=== PATIENT | female | born 1985 | race Caucasian/White ===

== ENCOUNTER 2023-03-22 23:28 | Emergency (ER) | payer SELFPAY ==
[2023-03-22 23:43] VITALS: BP 120/86; PULSE 115
== END 2023-03-23 00:56 | disposition left against medical advice (07) ==
LOC: JD.ED 23:28
DX: Z53.21 Procedure and treatment not carried out due to patient leaving prior to being seen by health care provider (principal)

== ENCOUNTER 2024-04-16 17:38 | Emergency (ER) | payer BC ==
[2024-04-16 19:47] VITALS: BP 117/94; PULSE 75
== END 2024-04-16 19:47 | disposition home or self-care (01) ==
LOC: JD.ED 17:38
DX: U07.1 COVID-19 (principal); T50.905A Adverse effect of unspecified drugs, medicaments and biological substances, initial encounter; Z86.16 Personal history of COVID-19; Z91.040 Latex allergy status; Z88.1 Allergy status to other antibiotic agents; Z88.8 Allergy status to other drugs, medicaments and biological substances
CPT/HCPCS: 71045; 71045-26; 99283

== ENCOUNTER 2024-05-28 14:27 | Emergency (ER) | payer BC ==
[2024-05-28 15:15] LABS: BASOPHILS PERCENT AUTO 0.4 % (0.0-1.0); EOSINOPHILS ABSOLUTE AUTO 0.2 K/mm3 (0.0-0.4); EOSINOPHILS PERCENT AUTO 1.6 % (0.0-6.0); HEMATOCRIT 37.2 % (37.0-47.0); HEMOGLOBIN 12.7 gm/dl (12.0-16.0); IMMATURE GRAN ABSOLUTE AUTO 0.03 K/mm3 (0.00-0.05); IMMATURE GRAN PERCENT AUTO 0.3 % (0.0-0.4); LYMPHOCYTES ABSOLUTE AUTO 1.9 K/mm3 (1.0-4.8); LYMPHOCYTES PERCENT AUTO 17.8 % (24.0-44.0); MEAN CORPUSCULAR HEMOGLOBIN 29.1 pg (28.0-32.0); MEAN CORPUSCULAR HGB CONC 34.1 g/dl (32.0-36.0); MEAN CORPUSCULAR VOLUME 85.3 fl (83.0-99.0); MEAN PLATELET VOLUME 9.7 fl (9.4-12.3); MONOCYTES ABSOLUTE AUTO 0.9 K/mm3 (0.0-0.8); MONOCYTES PERCENT AUTO 7.8 % (0.0-8.0); NEUTROPHILS ABSOLUTE AUTO 7.9 K/mm3 (1.8-7.7); NEUTROPHILS PERCENT AUTO 72.1 % (41.0-71.0); PLATELET COUNT,PLT 279 K/mm3 (150-400); RED BLOOD CELL COUNT 4.36 M/mm3 (4.10-5.30); WHITE BLOOD CELL COUNT,WBC 10.91 K/mm3 (3.9-11.3)
[2024-05-28] MEDS: Alum Hydrox/Mag Hydrox/Simeth 30 ML, Lidocaine 2% 15 ML PO ONE (15:20)
[2024-05-28] MEDS: LORazepam 1 MG Tab PO ONE (15:20)
[2024-05-28 15:41] LABS: A/G RATIO 1.3 (1-2); ALBUMIN 3.9 g/dl (3.4-5.0); ANION GAP 12.7 (5-15); BILIRUBIN TOTAL 0.7 mg/dL (0.2-1.0); BUN/CREATININE RATIO 15.4 (14-18); CALCIUM 8.8 mg/dL (8.5-10.1); CREATININE 1.3 mg/dL (0.55-1.02); EST CRCL DRUG DOSING (CG) 42.97 mL/min; POTASSIUM,K 3.7 mEq/L (3.5-5.1); PROTEIN TOTAL,TP 6.9 g/dl (6.4-8.2)
[2024-05-28 18:56] VITALS: BP 109/83; PULSE 110
== END 2024-05-28 16:10 | disposition home or self-care (01) ==
LOC: JD.ED 14:27
DX: F41.9 Anxiety disorder, unspecified (principal); T43.695A Adverse effect of other psychostimulants, initial encounter; E78.00 Pure hypercholesterolemia, unspecified; Z79.899 Other long term (current) drug therapy; Z88.1 Allergy status to other antibiotic agents; Z91.040 Latex allergy status; Z88.8 Allergy status to other drugs, medicaments and biological substances
CPT/HCPCS: 36415; 71046; 80053; 84484; 85025; 93005; 99285; A9270; 93010; 99284

== ENCOUNTER 2024-07-14 14:23 | Emergency (ER) | payer BC ==
[2024-07-14] MEDS ORDERED: Sodium Chloride 0.9% 10 ML Syringe FLUSH PRN (15:11)
[2024-07-14 15:29] LABS: BASOPHILS PERCENT AUTO 0.6 % (0.0-1.0); EOSINOPHILS ABSOLUTE AUTO 0.1 K/mm3 (0.0-0.4); EOSINOPHILS PERCENT AUTO 1.7 % (0.0-6.0); HEMATOCRIT 35.6 % (37.0-47.0); HEMOGLOBIN 11.8 gm/dl (12.0-16.0); IMMATURE GRAN ABSOLUTE AUTO 0.02 K/mm3 (0.00-0.05); IMMATURE GRAN PERCENT AUTO 0.3 % (0.0-0.4); LYMPHOCYTES ABSOLUTE AUTO 2.4 K/mm3 (1.0-4.8); MEAN CORPUSCULAR HEMOGLOBIN 28.6 pg (28.0-32.0); MEAN CORPUSCULAR HGB CONC 33.1 g/dl (32.0-36.0); MEAN CORPUSCULAR VOLUME 86.2 fl (83.0-99.0); MEAN PLATELET VOLUME 9.4 fl (9.4-12.3); MONOCYTES ABSOLUTE AUTO 0.4 K/mm3 (0.0-0.8); NEUTROPHILS ABSOLUTE AUTO 3.9 K/mm3 (1.8-7.7); NEUTROPHILS PERCENT AUTO 56.4 % (41.0-71.0); PLATELET COUNT,PLT 294 K/mm3 (150-400); RED BLOOD CELL COUNT 4.13 M/mm3 (4.10-5.30); WHITE BLOOD CELL COUNT,WBC 6.98 K/mm3 (3.9-11.3)
[2024-07-14] MEDS: Morphine 4 MG/ML Syringe IVPUSH ONE (15:29)
[2024-07-14] MEDS: Sodium Chloride 0.9% 10 ML Syringe FLUSH PRN (15:55)
[2024-07-14] MEDS: Iopamidol 755 Mg/ML 100 ML Bottle IVPUSH ONE (15:55)
[2024-07-14 16:04] LABS: ALBUMIN 3.3 g/dl (3.4-5.0); ANION GAP 11.7 (5-15); BILIRUBIN TOTAL 0.2 mg/dL (0.2-1.0); CALCIUM 8.1 mg/dL (8.5-10.1); CREATININE 1.6 mg/dL (0.55-1.02); EST CRCL DRUG DOSING (CG) 38.07 mL/min; POTASSIUM,K 3.7 mEq/L (3.5-5.1); PROTEIN TOTAL,TP 6.5 g/dl (6.4-8.2)
[2024-07-14] MEDS: Sodium Chloride 0.9% 1,000 ML IV ONE (16:10)
[2024-07-14 17:42] LABS: APPEARANCE,URINE CLEAR (Clear); BILIRUBIN,URINE NEGATIVE (Negative); COLOR,URINE LIGHT YELLOW (Yellow); GLUCOSE,URINE NEGATIVE (Negative); KETONES,URINE NEGATIVE (Negative); LEUKOCYTE ESTERASE,URINE NEGATIVE (Negative); NITRITE,URINE NEGATIVE (Negative); OCCULT BLOOD,URINE NEGATIVE (Negative); PROTEIN,URINE NEGATIVE (Negative); UROBILINOGEN,URINE 0.2 (0.2-1.0)
[2024-07-14] MEDS: Acetaminophen 325 MG Tab PO ONE (17:44)
[2024-07-14] MEDS ORDERED: Lidocaine 1% 10 ML MDV INJECT ONE (19:03)
[2024-07-14 21:26] VITALS: BP 111/70; PULSE 86
== END 2024-07-14 20:25 | disposition home or self-care (01) ==
LOC: JD.ED 14:23
DX: S71.111A Laceration without foreign body, right thigh, initial encounter (principal); E78.00 Pure hypercholesterolemia, unspecified; J45.909 Unspecified asthma, uncomplicated; Z86.16 Personal history of COVID-19; Z91.040 Latex allergy status; Z88.8 Allergy status to other drugs, medicaments and biological substances; V18.0XXA Pedal cycle driver injured in noncollision transport accident in nontraffic accident, initial encounter; Y93.55 Activity, bike riding
CPT/HCPCS: 36415; 70450; 70486; 71260; 72125; 73552; 73590; 74177; 80053; 81003; 83690; 84703; 85025; 96361; 96374; 99284; A9270; J2270; J3490; J7030; Q9967; 12002

== ENCOUNTER 2024-08-22 23:59 | Emergency (ER) | payer BC ==
[2024-08-23 00:06] VITALS: BP 129/75; PULSE 120
[2024-08-23] MEDS: Ibuprofen 600 MG Tab PO ONE (00:32)
[2024-08-23] MEDS: valACYclovir 1,000 MG Tab PO ONE (00:33)
[2024-08-23] MEDS: Gabapentin 100 MG Cap PO ONE (00:33)
[2024-08-23] MEDS: Acetaminophen/oxyCODONE 325-5 MG Tab PO ONE (00:33)
== END 2024-08-23 01:03 | disposition home or self-care (01) ==
LOC: JD.ED 23:59
DX: B02.9 Zoster without complications (principal); G62.9 Polyneuropathy, unspecified; J45.909 Unspecified asthma, uncomplicated; Z91.040 Latex allergy status; Z88.8 Allergy status to other drugs, medicaments and biological substances; Z79.899 Other long term (current) drug therapy
CPT/HCPCS: 99283; A9270

== ENCOUNTER 2024-09-28 00:16 | Emergency (ER) | payer BC, MEDICAID ==
[2024-09-28 00:35] VITALS: BP 140/88; PULSE 116
[2024-09-28] MEDS: predniSONE 20 MG Tab PO ONE (01:13)
[2024-09-28] MEDS: diphenhydrAMINE 50 MG Cap PO ONE (01:14)
== END 2024-09-28 01:21 | disposition home or self-care (01) ==
LOC: JD.ED 00:16
DX: L29.9 Pruritus, unspecified (principal); L50.9 Urticaria, unspecified; E78.00 Pure hypercholesterolemia, unspecified; J45.909 Unspecified asthma, uncomplicated; Z86.16 Personal history of COVID-19; Z79.899 Other long term (current) drug therapy; Z88.8 Allergy status to other drugs, medicaments and biological substances; Z91.040 Latex allergy status; Z88.6 Allergy status to analgesic agent
CPT/HCPCS: 99282; J7512; Q0163